=== PATIENT | female | born 1965 | race Caucasian/White ===

== ENCOUNTER 2016-07-31 22:32 | Emergency (ER) | payer SELFPAY ==
[2016-07-31 22:35] VITALS: BP 205/107; PULSE 61; RESP 16; TEMP 98.7; O2SAT 97
[2016-07-31] MEDS ORDERED: AMLO5 PO (23:37)
[2016-07-31] MEDS ORDERED: CEPH-460 PO (23:37)
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
[2016-08-01 01:59] VITALS: BP 165/90; PULSE 70; RESP 18; O2SAT 97
== END 2016-08-01 02:15 | disposition home or self-care (01) ==
LOC: NEPE 22:32
DX: S02.82XA Fracture of other specified skull and facial bones, left side, initial encounter for closed fracture (principal); I10 Essential (primary) hypertension; W20.8XXA Other cause of strike by thrown, projected or falling object, initial encounter
CPT/HCPCS: 70450; 70486